=== PATIENT | female | born 1965 | race Caucasian/White ===

== ENCOUNTER 2017-07-17 19:58 | Emergency (ER) | payer BC ==
[~2017-07-17] VITALS: Ht 162.6 cm; Wt 59.1 kg
[~2017-07-17 19:58] MED LIST: BUPR150T73 PO; BUPR300T49 PO; L-NO1TBD4 PO; OMEP10CA4 PO
[2017-07-17] MEDS ORDERED: SODIUM CHLORIDE 0.9% 1,000 ML IV ONE (20:13)
[2017-07-17 20:39] LABS: HEMATOCRIT 35.4 % (34.6-47.8); WHITE BLOOD COUNT 7.3 x10^3/uL (3.4-10)
[2017-07-17 20:49] LABS: PATH.CAST-FLAG NOT PRESENT; SPERM-FLAG NOT PRESENT; SRC-FLAG NOT PRESENT; XTAL-FLAG NOT PRESENT; YLC-FLAG NOT PRESENT
[2017-07-17 20:51] LABS: ASPARTATE AMINO TRANSFERASE 10 U/L (15-37); BLOOD UREA NITROGEN 22 mg/dL (7-18)
[2017-07-17 20:57] LABS: IS PT STATUS REG ER OR PRE ER? YES
[2017-07-17] MEDS ORDERED: KETOROLAC 30 MG/1 ML ONE (21:00)
[2017-07-17] MEDS ORDERED: ONDANSETRON 2MG/ML, 2ML IVPush ONE (21:00)
[2017-07-17] MEDS ORDERED: FAMOTIDINE 20 MG/2 ML IVPush ONE (21:00)
[2017-07-17] MEDS ORDERED: DIAZEPAM 5 MG TABLET PO ONE (21:00)
[2017-07-17] MEDS ORDERED: ONDANSETRON 2MG/ML, 2ML ONE (21:00)
[2017-07-17] MEDS ORDERED: KETOROLAC 30 MG/1 ML IVPush ONE (21:00)
[2017-07-17] MEDS ORDERED: DIAZEPAM 5 MG TABLET ONE (21:00)
[2017-07-17] MEDS ORDERED: DIAZEPAM 5 MG/ML, 10ML VIAL IV ONE (21:00)
[2017-07-17] MEDS ORDERED: FAMOTIDINE 20 MG/2 ML ONE (21:00)
[2017-07-17] MEDS ORDERED: MAALOX/HYOSCYAMINE/LIDOCAINE 45 ML BTL PO ONE (22:30)
[2017-07-17 23:13] VITALS: BP 121/72
[2017-07-17] MEDS ORDERED: MAALOX/HYOSCYAMINE/LIDOCAINE 45 ML BTL ONE (23:15)
== END 2017-07-18 00:08 | disposition home or self-care (01) ==
LOC: ED 21:44
DX: R10.12 Left upper quadrant pain (principal); R31.29 Other microscopic hematuria; R07.89 Other chest pain; N18.2 Chronic kidney disease, stage 2 (mild); K21.9 Gastro-esophageal reflux disease without esophagitis; Z90.710 Acquired absence of both cervix and uterus; Z88.0 Allergy status to penicillin; Z88.6 Allergy status to analgesic agent; Z88.2 Allergy status to sulfonamides
CPT/HCPCS: 36415; 71010; 74176; 76700; 80053; 81001; 83690; 84484; 85025; 86677; 87086; 93005; 96361; 96374; 96375; 99285; J1885; J2405; J3360; J7030; S0028